=== PATIENT | female | born 1980 | race African-American/Black ===

== ENCOUNTER 2022-05-19 13:28 | Outpatient (CLI) | payer BC, SELFPAY ==
[2022-05-19 15:31] LABS: Basophils Absolute Auto 0.1 K/mm3 (0.0-0.1); Basophils Percent Auto 0.8 % (0.2-1.2); Eosinophils Absolute Auto 0.2 K/mm3 (0-0.3); Eosinophils Percent Auto 2.5 % (0-4.4); Hematocrit 40.5 % (37.0-47.0); Hemoglobin 13.5 g/dL (12.0-15.0); Immature Granulocyte Absolute 0.02 K/mm3 (0.00-0.031); Immature Granulocyte Percent A 0.3 % (0-0.5); Lymphocytes Absolute Auto 2.58 K/mm3 (0.9-3.2); Lymphocytes Percent Auto 34.6 % (18.3-44.2); Mean Corpuscular HGB Conc 33.3 g/dl (32-36); Mean Corpuscular Hemoglobin 32.8 pg (26-34); Mean Corpuscular Volume 98.5 fl (80-100); Mean Platelet Volume 10.2 fl (7.4-10.4); Monocytes Absolute Auto 0.4 K/mm3 (0.1-0.6); Monocytes Percent Auto 5.1 % (2.6-8.5); Neutrophils Absolute Auto 4.2 K/mm3 (1.3-6.7); Neutrophils Percent Auto 56.7 % (45.5-73.1); Platelet Count Result 335 k/mm3 (150-375); Red Blood Count 4.11 M/mm3 (4.2-5.4); Red Cell Distribution Width 11.9 % (11.5-14.5); White Blood Count 7.5 K/mm3 (4.5-10.0)
== END 2022-05-19 13:29 | disposition home or self-care (01) ==
PROVIDERS: Visit Provider Obstetrics & Gynecology
DX: N93.9 Abnormal uterine and vaginal bleeding, unspecified (principal)
CPT/HCPCS: 36415; 85025

== ENCOUNTER → 2022-11-17 08:45 | Outpatient (CLI) | payer BC, SELFPAY ==
--- NOTE | ~2022-11-17 | US_ITS ---
Pelvic ultrasound. Clinical History: Hypertrophy of uterus Technique: Realtime transabdominal and transvaginal scanning of the pelvis was performed. Color flow Doppler and Doppler spectral analysis were performed. Findings: The uterus is anteverted, and measures 11.7 x 10.1 x 8.1 cm. The endometrial stripe has a thickness of 3 mm. Probable partially exophytic right-sided fibroid measures 5.2 x 4.4 x 3.4 cm large anterior lower uterine segment fibroid measures 6.4 x 7.2 x 7.2 cm.. The right ovary measures 3.0 x 3.3 x 3.1 cm. No significant right ovarian or adnexal mass is seen. The left ovary measures 3.9 x 2.8 x 2.8 cm. No significant left ovarian or adnexal mass is seen. Vascular flow present in both ovaries on Doppler spectral analysis. There is no evidence of free fluid in the cul de sac. Impression: Large uterine fibroids, as detailed above. Reviewed, dictated and finalized at location . Impression: Large uterine fibroids, as detailed above.
== END ==
PROVIDERS: PCP Obstetrics & Gynecology; Visit Provider Obstetrics & Gynecology
DX: N85.2 Hypertrophy of uterus (principal); D25.9 Leiomyoma of uterus, unspecified
CPT/HCPCS: 76830; 76856

== ENCOUNTER → 2023-02-07 15:25 | Outpatient (CLI) | payer BC, SELFPAY ==
--- NOTE | ~2023-02-07 | MM_ITS ---
EXAMINATION: MM screening anatoliy BI w hayley HISTORY: Screening mammogram TECHNIQUE: Craniocaudal and mediolateral oblique 3-D tomosynthesis images were obtained and synthetic 2-D images were generated. Bilateral rotated lateral CC views. CAD analysis was submitted and interp reted. COMPARISON: 04/22/2004 left breast ultrasound examination BREAST PARENCHYMAL COMPOSITION: The breasts are heterogeneously dense, which may obscure small masses . FINDINGS: There is asymmetry, architectural distortion and mild overlying retraction in the upper out er quadrant of the left breast. There is a history of prior benign excisional biopsy of an upper oute r quadrant left breast mass. Diagnostic left mammogram and left breast ultrasound examination are rec ommended since no prior mammogram is available for comparison. Additional bilateral mammographic asymmetries are noted. Bilateral diagnostic mammography and breast ultrasound examination are recommended.. IMPRESSION: 1. Asymmetry, architectural distortion, mild retraction, upper outer quadrant of left breast, possibl y related to prior benign excisional breast biopsy. 2. Bilateral mammographic asymmetries seen on bilateral diagnostic mammography and breast ultrasound examination are recommended . BI-RADS Category 0: Incomplete: Needs additional imaging evaluation. Reviewed, dictated and finalized at location A. IMPRESSION: 1. Asymmetry, architectural distortion, mild retraction, upper outer quadrant o f left breast, possibly related to prior benign excisional breast biopsy. 2. Bilateral mammographic asymmetries seen on bilateral diagnostic mammography and breast ultrasound examination are recommended . BI-RADS Category 0: Incomplete: Needs additional imaging evaluation.
== END ==
PROVIDERS: PCP Obstetrics & Gynecology; Visit Provider Obstetrics & Gynecology
DX: Z12.31 Encounter for screening mammogram for malignant neoplasm of breast (principal); R92.8 Other abnormal and inconclusive findings on diagnostic imaging of breast
CPT/HCPCS: 77063; 77067

== ENCOUNTER 2023-02-14 15:13 | Outpatient (CLI) | payer BC, SELFPAY ==
--- NOTE | ~2023-02-14 | US_ITS ---
EXAMINATION: US thyroid DATE: 02/14/2023 15:36 INDICATION: Nontoxic goiter, unspecified. TECHNIQUE: Multiple ultrasound images of the thyroid were obtained. COMPARISON: None. FINDINGS: The right thyroid lobe measures 5.2 x 2.3 x 3.0 cm. The left thyroid lobe measures 3.8 x 1.5 x 2.7 c m. The thyroid demonstrates heterogeneous echogenicity and increased vascularity. In the left thyroi d lobe, there is a 1.4 cm solid, hyperechoic, wider than tall nodule with smooth margin without echog enic foci (TI-RADS TR3). IMPRESSION: 1. Heterogeneous, hypervascular thyroid, likely chronic lymphocytic (Cheyanne) thyroiditis. 2. Left thyroid nodule, likely not clinically significant. No follow-up is needed. Reviewed, dictated and finalized at location E. IMPRESSION: 1. Heterogeneous, hypervascular thyroid, likely chronic lymphocytic (Cheyanne) thyroiditis. 2. Left thyroid nodule, likely not clinically significant. No follow-up is need ed.
== END 2023-02-14 15:14 ==
LOC: GOSHIMG 15:15
PROVIDERS: PCP Obstetrics & Gynecology; Visit Provider Obstetrics & Gynecology
DX: E04.1 Nontoxic single thyroid nodule (principal)
CPT/HCPCS: 76536

== ENCOUNTER → 2023-03-10 08:19 | Outpatient (CLI) | payer BC, SELFPAY ==
--- NOTE | ~2023-03-10 | MMUS_ITS ---
EXAMINATION: MM diagnostic anatoliy BI w hayley, US breast BI complete HISTORY: Follow-up bilateral breast asymmetries TECHNIQUE: Additional 3-D tomosynthesis images of the breasts were performed and synthetic 2-D images were generated. CAD analysis was submitted and interpreted. High resolution bilateral complete breas t ultrasound was performed. COMPARISON: 02/07/2023 BREAST PARENCHYMAL COMPOSITION: The breasts are heterogeneously dense, which may obscure small masses FINDINGS: MAMMOGRAPHIC FINDINGS: There are no discrete masses, calcifications or architectural distortion in either breast with spot c ompression or mediolateral views. ULTRASOUND: Complete bilateral US of all 4 quadrants of the breasts and retroareolar region was reviewed. Right breast: There are multiple simple and complicated cysts of the right breast. In addition: At 1:00, 3 cm from the nipple, there is an oval hypoechoic mass with linear echogenic hi lum measuring 6 mm, likely an intramammary lymph node. There is an intramammary lymph node at 6:00, 1 cm from the nipple measuring 7 mm. Left breast: Multiple and simple and complicated cysts. At 2:00, 5 cm from the nipple there is a 3 mm round hypoechoic mass with subtle posterior acoustic enhancement and no internal vascularity, likely benign. At 10:00, 3 cm from the nipple, there is an oval circumscribed parallel oriented hypoechoic mass measuring 5 mm without internal vascularity or significant posterior features. IMPRESSION: 1. Probable benign bilateral breast masses by ultrasound. Multiple additional simple and complicated cysts are present. 2. Recommend 6 month follow-up probable benign bilateral breast masses. BI-RADS category 3, probably benign findings. Reviewed, dictated and finalized at location A. NNA MACHINE OPERATOR IMPRESSION: 1. Probable benign bilateral breast masses by ultrasound. Multiple additional s imple and complicated cysts are present. 2. Recommend 6 month follow-up probable benign bilateral breast masses. BI-RADS category 3, probably benign findings.
== END ==
PROVIDERS: PCP Obstetrics & Gynecology; Visit Provider Obstetrics & Gynecology
DX: R92.8 Other abnormal and inconclusive findings on diagnostic imaging of breast (principal)
CPT/HCPCS: 76641; 77062; 77066; G0279

== ENCOUNTER 2023-10-06 13:35 | Outpatient (CLI) | payer BC, SELFPAY ==
--- NOTE | ~2023-10-06 | US_ITS ---
EXAMINATION: US pelvic complete w TV DATE: 10/06/2023 14:32 INDICATION: Uterine leiomyoma Comparison:Ultrasound dated 11/18/2019 TECHNIQUE: Multiple transabdominal and endovaginal sonographic images of the pelvis performed. FINDINGS: The uterus measures 10.8 x 3.9 x 8.4 cm. The endometrial complex measures 8.7 mm. The right ovary measures 3.3 x 1.5 x 3.2 cm and the left ovary measures 3 x 1.3 x 3.6 cm. There is a uterine fibroid measuring 8.1 cm. There are small follicles in each ovary. Normal doppler signal in b oth ovaries. There is no free fluid in the pelvis. There is fluid in the cervix. There are no abnormal masses seen on either side. IMPRESSION: 1. Enlarged fibroid uterus. Reviewed, dictated and finalized at location B. IMPRESSION: 1. Enlarged fibroid uterus.
== END 2023-10-06 13:36 | disposition home or self-care (01) ==
PROVIDERS: PCP Obstetrics & Gynecology; Visit Provider Obstetrics & Gynecology
DX: D25.9 Leiomyoma of uterus, unspecified (principal)
CPT/HCPCS: 76830; 76856

== ENCOUNTER 2023-10-10 10:42 | Outpatient (CLI) | payer BC, SELFPAY ==
--- NOTE | ~2023-10-10 | MMUS_ITS ---
EXAMINATION: MM diagnostic anatoliy BI w hayley, US breast BI limited HISTORY: Six-month follow-up bilateral breast masses TECHNIQUE: Additional 3-D tomosynthesis images of the breasts were performed and synthetic 2-D images were generated. CAD analysis was submitted and interpreted. High resolution limited bilateral breast ultrasound was performed. COMPARISON: Comparison to multiple prior studies sequentially, with oldest reviewed study dated 01/29. BREAST PARENCHYMAL COMPOSITION: Dense: The breasts are extremely dense, which lowers the sensitivity of mammography. FINDINGS: MAMMOGRAPHIC FINDINGS: There are no suspicious masses, calcifications or architectural distortion in either breast to sugges t malignancy. ULTRASOUND: Limited right breast ultrasound: At 1:00, 3 cm from the nipple there is an oval hypoechoic 6 mm mass with echogenic hilum unchanged from prior study, most likely benign intramammary lymph node. At 9:00, 9 cm from the nipple there is a 3 mm cyst. At 11:00, 9 cm from the nipple there is a 4 mm cyst. Limited left breast ultrasound: At 2:00, 5 cm from the nipple, there is a 4 mm cyst. At 7:00, 5 cm fr om the nipple, there is a 4 mm complicated cyst. At 9:00, 4 cm from the nipple, there is a 6 mm cyst. At 10:00, 3 cm from the nipple, there is an oval hypoechoic 5 mm mass without significant change fro m prior examination. No internal features or internal posterior acoustic shadowing. IMPRESSION: 1. Probable benign left breast mass at 10:00, 3 cm from the nipple. No evidence for malignancy in the right breast. 2. Recommend 6 month follow-up Limited left breast ultrasound. BI-RADS category 3, probably benign findings. Reviewed, dictated and finalized at location B. IMPRESSION: 1. Probable benign left breast mass at 10:00, 3 cm from the nipple. No evidence for malignancy in the right breast. 2. Recommend 6 month follow-up Limited left breast ultrasound. BI-RADS category 3, probably benign findings.
== END 2023-10-10 10:43 | disposition home or self-care (01) ==
LOC: ANHIMG 10:43
PROVIDERS: PCP Obstetrics & Gynecology; Visit Provider Obstetrics & Gynecology
DX: R92.8 Other abnormal and inconclusive findings on diagnostic imaging of breast (principal)
CPT/HCPCS: 76642; 77062; 77066; G0279

== ENCOUNTER 2023-12-29 12:19 | Outpatient (CLI) | payer BC, SELFPAY ==
--- NOTE | ~2023-12-29 | US_ITS ---
EXAMINATION: US FNA w image guidance DATE: 12/29/2023 13:41 INDICATION: 1.3 similar left thyroid is 4 thyroid nodule TECHNIQUE: A time-out was performed to verify the patient's name, date of , and procedure to be performed . The procedure and its benefits and risks were discussed with the patient. Risks specifically discus sed included bleeding and infection. The patient understood the risks and agreed to proceed. The neck was prepped and draped in the usual sterile manner. 4 mL 1% lidocaine was used for local anesthesia . 6 passes were made with a 25G needle into the lesion. Appropriate needle location was documented with continuous sonographic guidance. A sterile bandage was applied. There were no immediate compli cations. FINDINGS: Grayscale ultrasound images demonstrate biopsy needles advanced into a 1.5 x 1.3 x 1.1 cm mildly hype rechoic nodule with hypoechoic halo in the inferior left thyroid. Remainder of the thyroid appears he terogeneously hypoechoic with coarsened echotexture suggestive of chronic lymphocytic (Cheyanne) thy roiditis. No other thyroid nodules identified. IMPRESSION: 1. Successful ultrasound-guided fine needle aspiration of a 1.5 cm TI RADS3 left thyroid nodule. Reviewed, dictated and finalized at location A. IMPRESSION: 1. Successful ultrasound-guided fine needle aspiration of a 1.5 cm TI RADS3 le ft thyroid nodule.
== END 2023-12-29 12:20 | disposition home or self-care (01) ==
LOC: ANHIMG 12:25
PROVIDERS: PCP Obstetrics & Gynecology; Visit Provider Internal Medicine
DX: E04.1 Nontoxic single thyroid nodule (principal)
CPT/HCPCS: 10005; 88172; 88173; 88305

== ENCOUNTER 2024-08-15 11:48 | Outpatient (CLI) | payer BC, SELFPAY ==
--- NOTE | ~2024-08-15 | US_ITS ---
US breast LT limited 08/15/2024 12:02 Indication: Follow-up likely benign left breast mass Procedure: High-resolution Limited ultrasound of the left breast Comparison: Ultrasound dated 10/10/2023 and 03/10/2023 Findings: Stable oval parallel oriented circumscribed hypoechoic left breast mass at 10:00, 3 cm from the nipple measuring 7 x 4 x 5 mm compared with 6 x 5 x 3 mm on 10/10/2023. No internal vascularity o r posterior features. Impression: 1: Stable likely benign left breast mass. BI-RADS CATEGORY 3-PROBABLY BENIGN FINDING RECOMMENDATION: Six-month follow-up bilateral mammogram and Limited left breast ultrasound. Reviewed, dictated and finalized at location B. Impression: 1: Stable likely benign left breast mass. BI-RADS CATEGORY 3-PROBABLY BENIGN FINDING RECOMMENDATION: Six-month follow-up bilateral mammogram and Limited left breast ultrasound.
== END 2024-08-15 11:49 | disposition home or self-care (01) ==
LOC: MICIMG 11:49
PROVIDERS: PCP Obstetrics & Gynecology; Visit Provider Obstetrics & Gynecology
DX: R92.8 Other abnormal and inconclusive findings on diagnostic imaging of breast (principal)
CPT/HCPCS: 76642

== ENCOUNTER 2025-02-24 14:54 | Outpatient (CLI) | payer BC, SELFPAY ==
--- NOTE | ~2025-02-24 | US_ITS ---
Clinical history:Hypertrophy of the uterus. LMP 02/06/2025 EXAM:Ultrasound pelvis complete with transvaginal TECHNIQUE:Multiple static grayscale images and color Doppler transvaginal and transabdominal images were obtained of the pelvis Comparisons:Ultrasound pelvis 10/06/2023 FINDINGS: Uterus is enlarged and heterogeneous measuring 15.4 x 9.9 x 8.0 cm. There is an indeterminate 11.1 x 8.8 x 7.4 cm heterogeneous mass in the uterus possibly a uterine fibroid. Other etiologies are possible. A pelvic MRI with and without contrast is recommended. Visualized endometrial stripe measures 11 mm which is within normal limits for patient who is premenopausal. Right ovary was not visualized. Left ovary is enlarged and measures 6.4 3.5 x 6.4 cm. There is an indeterminate 4.7 x 4.6 x 4.8 cm complex mass in the left ovary. No internal color Doppler flow. There is peripheral color Doppler flow. IMPRESSION: 1. There is an indeterminate 11.1 x 8.8 x 7.4 cm heterogeneous mass in the uterus possibly a uterine fibroid. Other etiologies are possible. A pelvic MRI with and without contrast is recommended. 2. There is an indeterminate 4.7 x 4.6 x 4.8 cm complex mass in the left ovary. A pelvic MRI with and without contrast is recommended. 3. Right ovary was not visualized. Reviewed, dictated and finalized at location Q. IMPRESSION: 1. There is an indeterminate 11.1 x 8.8 x 7.4 cm heterogeneous mass in the uter us possibly a uterine fibroid. Other etiologies are possible. A pelvic MRI with and without contrast is recommended. 2. There is an indeterminate 4.7 x 4.6 x 4.8 cm complex mass in the left ovary. A pelvic MRI with and without contrast is recommended. 3. Right ovary was not visualized.
== END 2025-02-24 14:55 | disposition home or self-care (01) ==
LOC: MICIMG 14:55
PROVIDERS: PCP Obstetrics & Gynecology; Visit Provider Obstetrics & Gynecology
DX: N85.2 Hypertrophy of uterus (principal); D25.9 Leiomyoma of uterus, unspecified
CPT/HCPCS: 76830; 76856

== ENCOUNTER 2025-04-12 13:05 | Outpatient (CLI) | payer BC, SELFPAY ==
--- OUTSIDE RECORDS SUMMARY | 2025-04-12 13:08 | XMS_ITS | Clinical Summary ---
Author Organization [facility] Address [address] [place] [address] Care Team Providers Care Crepe Machine Operator Name Role Phone Manpreet Daniel MD Primary Care Provider [phone] Medications fluconazole (DIFLUCAN) 150 mg tablet Take 1 Tablet (150 mg) by mouth daily. 1 Tablet 2 06/10/2015 Active Active Problems Patient Care Coordination No te Formatting of this note migh t be different from the original. Prev 06/10/15 Problem Noted Date Diagnosed Date Goiter 06/10/2015 Myalgia 06/10/2015 Family History Medical History Relation Name Comments Arthritis-rheumatoid Father Diabetes Father Breast Cancer Mother Multiple Sclerosis Mother Relation Name Status Comments Father Alive Maternal Grandfather Maternal Grandmother Mother Alive Paternal Grandfather Paternal Grandmother Social History Tobacco Use Types Packs/Day Years Used Date Smoking Tobacco: Never Smokeless Tobacco: Never Alcohol Use Standard Drinks/Week Comments Yes 2 (1 standard drink = 0.6 oz pur e alcohol) social Comments Unknown Sex and Gender Information Value Date Recorded Sex Assigned at Not on file Legal Sex Female 11:49 AM CHANGE AGENT Gender Identity Not on file Sexual Orientation Not on file Last Filed Vital Signs Vital Sign Reading Time Taken Comments Blood Pressure 120/80 06/10/2015 11:47 AM CHANGE AGENT Pulse - - Temperature - - Respiratory Rate - - Oxygen Saturation - - Inhaled Oxygen Concentration - - Weight 88.5 kg (195 lb) 06/10/2015 11:47 AM CHANGE AGENT Height 174 cm (5' 8.5) 06/10/2015 11:47 AM CHANGE AGENT Body Mass Index 29.22 06/10/2015 11:47 AM CHANGE AGENT Plan of Treatment Health Maintenance Due Date Last Done Comments DTAP/TDAP/TD VACCINES (1 - Tdap) 1999 HEPATITIS B VACCINES (1 of 3 - 19+ 3-dose series) 08/1998 HPV/Cotest (21-29) 2001 CERVICAL CANCER SCREENING 2010 HPV/Cotest (30-65) 2010 PAP SMEAR 2010 BREAST CANCER SCREENING 2020 Preventative Visit- Commercial 05/01/2024 06/10/2015 INFLUENZA VACCINE (#1) 2024 COLORECTAL SCREENING 2025 Colorectal Cancer Screening 2025 FIT-DNA Q 3 years 2025 FIT/FOBT Q 1 year 2025 Flex Sig/CT Colonography Q 5 years 2025 HPV VACCINES (No Doses Required) Completed Insurance [employer] BLUE ACCESS/TRUE BLUE PPO Care Teams Crepe Machine Operator Relationship Specialty Start Date End Date Manpreet Daniel MD PCP - General Internal Medicine 06/03/15
--- OUTSIDE RECORDS SUMMARY | 2025-04-12 13:08 | XMS_ITS | Clinical Summary ---
Author Organization [facility] Address Formerly [facility] [place] [address] Care Team Providers Care Voltmeter Operator Name Role Phone Unavailable Primary Care Provider Unavailabl e Social History Tobacco Use Types Packs/Day Years Used Date Smoking Tobacco: Never Assessed Comments Unknown Sex and Gender Information Value Date Recorded Sex Assigned at Not on file Legal Sex Female 7:38 PM CDT Gender Identity Not on file Sexual Orientation Not on file Plan of Treatment Health Maintenance Due Date Last Done Comments Cervical Cancer Screening Pa p Smear (Age 30 to 64) Every 3 Years 1980 Annual Physical 1983 Hepatitis C 1998 DTaP, Tdap and Td Vaccines ( 1 - Tdap) 1999 Hepatitis B Vaccines (1 of 3 - 19+ 3-dose series) 1999 HPV Vaccines (1 - 3-dose SCD M series) 2007 Cervical Cancer Screening Pa p with HPV Testing (Age 30 to 64) Every 5 Years 2010 Cervical Cancer Screening with HPV 2010 Mammogram Screening 2020 COVID-19 Vaccine (2024-2 6 season) 2024 Influenza Adult (#1) 2025 Hepatitis A Vaccines Aged Out No long er eligible based on patient's age to complete this topic Meningococcal B Vaccine Aged Out No l onger eligible based on patient's age to complete this topic Meningococcal Vaccine Aged Out No katherine reza eligible based on patient's age to complete this topic Pneumococcal Vaccine: Pediat rics (0 to 5 Years) and At-Risk Patients (6 to 49 Years) Aged Out No longer eligible b ased on patient's age to complete this topic RSV Immunizations Under 20 Months Aged Out No longer eligible based on patient's age to complete this topic
--- OUTSIDE RECORDS SUMMARY | 2025-04-12 13:08 | XMS_ITS | Clinical Summary ---
Author Organization [facility] [address] Address [address] [place] [id number] Care Team Providers Care Software Test Analyst Name Role Phone Unknown, Notinfile Primary Care Provider Unavail able Allergies No known active allergies Medications fluconazole (DIFLUCAN) 150 mg tablet Take 1 tablet (150 mg total) by mouth daily 06/10/2015 Active norethindrone (AYGESTIN) 5 mg tablet 06/13/2023 Active Active Problems Problem Noted Date Diagnosed Date Goiter 06/10/2015 Myalgia 06/10/2015 Social History Tobacco Use Types Packs/Day Years Used Date Smoking Tobacco: Never Assessed Comments Unknown Sex and Gender Information Value Date Recorded Sex Assigned at Not on file Legal Sex Female 7:11 AM DEVELOPER EVANGELIST Gender Identity Not on file Sexual Orientation Not on file Last Filed Vital Signs Vital Sign Reading Time Taken Comments Blood Pressure 122/68 07/15/2023 8:21 AM CDT Pulse 85 07/15/2023 8:21 AM CDT Temperature 36.9 C (98.4 F) 07/15/2023 8:21 AM CDT Respiratory Rate 18 07/15/2023 8:21 AM CDT Oxygen Saturation 99% 07/15/2023 8:21 AM CDT Inhaled Oxygen Concentration - - Weight 95.3 kg (210 lb) 07/15/2023 8:21 AM CDT Height 177.8 cm (5' 10) 07/15/2023 8:21 AM CDT Body Mass Index 30.13 07/15/2023 8:21 AM CDT Plan of Treatment Health Maintenance Due Date Last Done Comments Breast Cancer Screening-Mammogram 1980 Cervical Cancer Screening 1980 Colon Cancer Screening-Colonoscopy 1980 Depression Screening 1980 Hepatitis C Screening 1980 DTaP/Tdap/Td Vaccine (1 - Tdap) 1991 Varicella Vaccines (1 of 2 - 13+ 2-dose series) 1993 Hepatitis B Screening 1998 Regular Well Visit/Exam 18-64 1998 HPV Vaccines (1 - 3-dose SCDM series) 2007 Covid-19 Vaccine ( - 2024- season) 2024 04/07/2022, 02/19/2021, 05/29/2020, Additional history exists Influenza Vaccine (#1) 2024 , 02/20/2021, 02/02/2020, Additional history exists Pneumococcal vaccine <65 Aged Out No longer eligible based on patient's age to complete this topic Insurance [employer] O[employer] Care Teams Software Test Analyst Relationship Specialty Start Date End Date Unknown, Notinfile PCP - General 07/15/23
== END 2025-04-12 13:06 | disposition home or self-care (01) ==
LOC: ANHLAB 13:06
PROVIDERS: PCP Obstetrics & Gynecology; Visit Provider Obstetrics & Gynecology
DX: N83.209 Unspecified ovarian cyst, unspecified side (principal); D25.9 Leiomyoma of uterus, unspecified
CPT/HCPCS: 86304

== ENCOUNTER 2025-04-15 08:23 | Outpatient (CLI) | payer BC, SELFPAY ==
--- NOTE | ~2025-04-15 | US_ITS ---
EXAMINATION: US breast LT limited INDICATION: 45-year old female; presents for short-term follow-up left breast mass. COMPARISON: 08/15/2024 and 10/10/2023 TECHNIQUE: Targeted sonographic evaluation of the area of concern in the LEFT breast was completed. FINDINGS: A 0.7 cm Hypoechoic mass with ill-defined irregular margins at 10:00 location 3 cm from the nipple in the LEFT breast. IMPRESSION: Suspicious LEFT breast mass at 10:00 location. RECOMMENDATION: Biopsy under ultrasound guidance. BI-RADS 4, SUSPICIOUS Reviewed, dictated and finalized at location A. STANT TERMINAL MANAGER
--- NOTE | ~2025-04-15 | MM_ITS ---
EXAMINATION: MM diagnostic anatoliy BI w hayley HISTORY: Screening TECHNIQUE: Craniocaudal and mediolateral oblique 3-D tomosynthesis images were obtained and synthetic 2-D images were generated. CAD analysis was submitted and interpreted. COMPARISON: Comparison to multiple prior studies sequentially, with oldest reviewed study dated , 02/07/2023 BREAST PARENCHYMAL COMPOSITION: Dense: The breasts are heterogeneously dense, which may obscure small masses. FINDINGS: There is no evidence of suspicious mass, calcification, or architectural distortion to suggest malignancy in either breast. IMPRESSION: 1. No mammographic evidence of malignancy. 2. Same-day ultrasound examination of the left breast performed showed a suspicious left breast mass at 10:00 location. Biopsy is recommended under ultrasound guidance. BI-RADS 4, SUSPICIOUS Reviewed, dictated and finalized at location A. AL UPSTREAM MARKETING MANAGER IMPRESSION: 1. No mammographic evidence of malignancy. 2. Same-day ultrasound examination of the left breast performed showed a suspic ious left breast mass at 10:00 location. Biopsy is recommended under ultrasound guidance. BI-RADS 4, SUSPICIOUS
== END 2025-04-15 08:24 | disposition home or self-care (01) ==
LOC: MICIMG 08:24
PROVIDERS: PCP Obstetrics & Gynecology; Visit Provider Obstetrics & Gynecology
DX: R92.8 Other abnormal and inconclusive findings on diagnostic imaging of breast (principal)
CPT/HCPCS: 76642; 77062; 77066; G0279